=== PATIENT | female | born 1980 | race Two or more races ===

== ENCOUNTER 2016-11-08 07:14 | Day surgery (SDC) | payer OTHER ==
[2016-11-05 14:08] VITALS: BMI 23.3
[2016-11-08] MEDS ORDERED: MIDAZOLAM HCL 2 MG/2 ML SINGLE DOSE VIAL ONE (07:44)
[2016-11-08] MEDS ORDERED: PROPOFOL 20 ML ONE ×2 (07:44)
--- NOTE | 2016-11-08 09:13 | HP ---
Admitting History and Physical - Admission Chief Complaint: Multiparity History of Present Illness: 36 yo Para 2, desires permanent sterilization. History Source: Patient Limitations to Obtaining History: No Limitations - Past Medical History ...LMP: 03/10/17 ...: No ...Para: 2 - Past Surgical History Past Surgical History: Yes: None - Smoking History Smoking history: Never smoked Have you smoked in the past 12 months: No - Alcohol/Substance Use Hx Alcohol Use: Yes (OCC) History of Substance Use: reports: None - Social History History of Recent Travel: No Home Medications - Allergies Allergies/Adverse Reactions: Allergies Allergy/AdvReac Type Severity Reaction Status Date / Time Penicillins Allergy Intermediate Rash Verified 11/08/16 07:40 - Home Medications Home Medications: Ambulatory Orders Cholecalciferol (Vitamin D3) [Vitamin D3] 2,000 unit PO DAILY 11/05/16 Ibuprofen 800 mg PO Q6H PRN 11/05/16 Zinc Gluconate [Zinc] 50 mg PO DAILY 11/05/16 Family Disease History - Family Disease History Family History: Unremarkable Review of Systems - Review of Systems Constitutional: reports: No Symptoms Eyes: reports: No Symptoms HENT: reports: No Symptoms Neck: reports: No Symptoms Cardiovascular: reports: No Symptoms Respiratory: reports: No Symptoms Gastrointestinal: reports: No Symptoms Genitourinary: reports: No Symptoms Breasts: reports: No Symptoms Reported Musculoskeletal: reports: No Symptoms Integumentary: reports: No Symptoms Neurological: reports: No Symptoms Endocrine: reports: No Symptoms Hematology/Lymphatic: reports: No Symptoms Psychiatric: reports: No Symptoms Pain Intensity: 0 Physical Examination Vital Signs: Vital Signs Temperature 98.8 F 11/08/16 07:32 Pulse Rate 86 11/08/16 07:32 Respiratory Rate 18 11/08/16 07:32 Blood Pressure 129/67 11/08/16 07:32 O2 Sat by Pulse Oximetry (%) 100 11/08/16 07:32 Constitutional: Yes: Well Nourished Eyes: Yes: Conjunctiva Clear HENT: Yes: Atraumatic Neck: Yes: Supple, Trachea Midline Cardiovascular: Yes: Regular Rate and Rhythm Respiratory: Yes: Regular, CTA Bilaterally Gastrointestinal: Yes: Normal Bowel Sounds Neurological: Yes: Alert, Oriented ...Motor Strength: WNL Psychiatric: Yes: Alert, Oriented Problem List - Problems (1) Sterilization Code(s): Z30.2 - ENCOUNTER FOR STERILIZATION (2) Multiparity Code(s): Z64.1 - PROBLEMS RELATED TO MULTIPARITY Assessment/Plan Multiparity Pre op for permanent sterilization Consent signed Anesthesia to see patient
[2016-11-08] MEDS ORDERED: KETOROLAC TROMETHAMINE 30 MG/1 ML VIAL ONE (09:49)
[2016-11-08] MEDS ORDERED: DEXAMETHASONE SOD PHOSPHATE 4 MG/1 ML VIAL ONE (09:49)
[2016-11-08] MEDS ORDERED: LIDOCAINE HCL/PF 2% SDV 5ML VIAL ONE (09:50)
[2016-11-08] MEDS ORDERED: oxyCODONE HCL 5 MG TABLET PO PRN (10:05)
[2016-11-08] MEDS ORDERED: ONDANSETRON 4 MG/2 ML VIAL IVPUSH PRN (10:05)
[2016-11-08] MEDS ORDERED: LACTATED RINGERS SOLUTION 1,000 ML IV SCH (10:15)
--- NOTE | 2016-11-08 10:29 | OP ---
Operative Note - Note: Operative Date: 11/08/16 Pre-Operative Diagnosis: Multiparity Operation: ESSURE attempt Findings: Non Visualization of tubal ostia Post-Operative Diagnosis: Same as Pre-op Surgeon: Jennyfer Maldonado Anesthesia: General
[2016-11-08 10:48] VITALS: TEMP 97.8
[2016-11-08 12:42] VITALS: BP 115/63; PULSE 84
--- NOTE | 2016-11-09 12:31 | PATH ---
Surgical Pathology Report Patient Name: FAVIO SARAVIA [facility]. Rec. #: [id number] /Age/Gender: 1980 (Age: 36) / F Account: [id number] Location: [facility] [place] [facility] Taken: 11/08/2016 Received: 11/08/2016 Reported: 11/09/2016 Physicians: Jennyfer Maldonado M.D. Specimen(s) Received ENDOMETRIAL CURETTINGS Clinical History Multiparity Final Diagnosis ENDOMETRIUM, CURETTING: MUCINOUS MATERIAL WITH ADMIXED NEUTROPHILS. NO INTACT ENDOMETRIUM IDENTIFIED. Comment: Recommend correlation with clinical findings and follow up as clinically indicated. Electronically Signed Andrey Miranda M.D. Gross Description Received in formalin labeled "endometrial curettings," is a 1.0 x 1.0 x 0.3 cm aggregate of blood-tinged mucus, possibly containing soft tissue fragments. The formalin is filtered and the specimen is entirely submitted in one cassette. /11/08/2016 saudi11/08/2016
== END 2016-11-08 12:43 | disposition home or self-care (01) ==
LOC: JASU-SURG 07:14
PROVIDERS: ATTEND Obstetrics & Gynecology
PROC: 0UL78DZ Occlusion of Bilateral Fallopian Tubes with Intraluminal Device, Via Natural or Artificial Opening Endoscopic (ICD-10-PCS; principal; 2016-11-08 08:00)
DX: Z30.2 Encounter for sterilization (principal); Z53.8 Procedure and treatment not carried out for other reasons
CPT/HCPCS: 36415; 84702; 88305-TC; 94760

== ENCOUNTER 2016-12-07 06:17 | Day surgery (SDC) | payer OTHER ==
[2016-12-06 09:17] VITALS: BMI 23.3
[2016-12-07] MEDS ORDERED: PROPOFOL 20 ML ONE (07:30)
[2016-12-07] MEDS ORDERED: MIDAZOLAM HCL 2 MG/2 ML SINGLE DOSE VIAL ONE (07:30)
--- NOTE | 2016-12-07 08:22 | HP ---
Admitting History and Physical - Admission Chief Complaint: Multiparity History of Present Illness: 36 yo presents for Hysteroscopic ESSURE. History Source: Patient Limitations to Obtaining History: No Limitations - Past Medical History ...LMP: 03/10/17 ...LMP Comment: provera- 02/26 ...: No - Past Surgical History Past Surgical History: Yes: None - Smoking History Smoking history: Never smoked Have you smoked in the past 12 months: No - Alcohol/Substance Use Hx Alcohol Use: Yes (OCC) History of Substance Use: reports: None - Social History History of Recent Travel: No Home Medications - Allergies Allergies/Adverse Reactions: Allergies Allergy/AdvReac Type Severity Reaction Status Date / Time Penicillins Allergy Intermediate Rash Verified 11/08/16 07:40 - Home Medications Home Medications: Ambulatory Orders Cholecalciferol (Vitamin D3) [Vitamin D3] 2,000 unit PO DAILY 11/05/16 Ibuprofen 800 mg PO Q6H PRN 11/05/16 Zinc Gluconate [Zinc] 50 mg PO DAILY 11/05/16 Review of Systems - Review of Systems Constitutional: reports: No Symptoms Eyes: reports: No Symptoms HENT: reports: No Symptoms Neck: reports: No Symptoms Cardiovascular: reports: No Symptoms Respiratory: reports: No Symptoms Gastrointestinal: reports: No Symptoms Genitourinary: reports: No Symptoms Breasts: reports: No Symptoms Reported Musculoskeletal: reports: No Symptoms Integumentary: reports: No Symptoms Neurological: reports: No Symptoms Endocrine: reports: No Symptoms Hematology/Lymphatic: reports: No Symptoms Physical Examination Vital Signs: Vital Signs Temperature 98.6 F 12/07/16 06:43 Pulse Rate 82 12/07/16 06:43 Respiratory Rate 16 12/07/16 06:43 Blood Pressure 116/73 12/07/16 06:43 O2 Sat by Pulse Oximetry (%) 98 12/07/16 06:43 Constitutional: Yes: Well Nourished Eyes: Yes: Conjunctiva Clear HENT: Yes: Atraumatic Neck: Yes: Supple Cardiovascular: Yes: Regular Rate and Rhythm Respiratory: Yes: Regular Gastrointestinal: Yes: Normal Bowel Sounds Musculoskeletal: Yes: WNL Neurological: Yes: Alert, Oriented ...Motor Strength: WNL Psychiatric: Yes: Alert, Oriented Assessment/Plan Multiparity Pre op for Hysteroscopic ESSURE Consent signed Anesthesia to see patient
[2016-12-07] MEDS ORDERED: ONDANSETRON 4 MG/2 ML VIAL IVPUSH PRN (08:50)
[2016-12-07] MEDS ORDERED: oxyCODONE HCL 5 MG TABLET PO PRN ×2 (08:50)
[2016-12-07] MEDS ORDERED: LACTATED RINGERS SOLUTION 1,000 ML IV SCH (09:00)
[2016-12-07] MEDS ORDERED: KETOROLAC TROMETHAMINE 30 MG/1 ML VIAL ONE (10:36)
[2016-12-07] MEDS ORDERED: DEXAMETHASONE SOD PHOSPHATE 4 MG/1 ML VIAL ONE (10:36)
[2016-12-07 12:30] VITALS: TEMP 98
[2016-12-07] MEDS ORDERED: ONDANSETRON 4 MG/2 ML VIAL ONE (12:54)
[2016-12-07 14:41] VITALS: BP 118/76; PULSE 78
--- NOTE | 2016-12-30 08:43 | OP ---
DATE OF OPERATION: 12/07/2016 PREOPERATIVE DIAGNOSIS: Multiparity, desired permanent sterilization. POSTOPERATIVE DIAGNOSIS: Multiparity, desired permanent sterilization. PROCEDURE: Laparoscopic Essure. SURGEON: Jennyfer Maldonado MD ANESTHESIA: General. COMPLICATIONS: None. DESCRIPTION OF PROCEDURE: Patient was taken to the operating room where general anesthesia was administered. Patient was then placed in lithotomy position. She was prepped and draped in proper sterile fashion. A speculum was placed in the vagina. Anterior lip of the cervix was grasped with a single-tooth tenaculum, and the cervical os was sequentially dilated with dilators. Then the hysteroscope was then gently introduced into the uterine cavity. Both ostia were visualized. Then the introducer was placed through the working channel. The Essure catheter was then carefully inserted into the introducer, and the catheter was advanced until the black positioning marker was at the tubal ostium. The Essure handle was stabilized to the hysteroscope. The thumbwheel was rolled back to the black positioning marker, moved toward me until reaching a hard stop, then placement of the micro-insert was checked, and the gold band was noted to be outside of the ostium. Then the button was pressed to initiate deployment. Finally, the thumb wheel was rolled back to a hard stop, which expanded and detached the micro-insert. On the left side there were 5 coils noted, and on the right side there were 3 coils noted. Patient tolerated the procedure well. Patient was taken to PACU in stable condition. JENNYFER MALDONADO M.D. [id number]
== END 2016-12-07 14:00 | disposition home or self-care (01) ==
LOC: JASU-SURG 06:17
PROVIDERS: ATTEND Obstetrics & Gynecology
PROC: 0UL78DZ Occlusion of Bilateral Fallopian Tubes with Intraluminal Device, Via Natural or Artificial Opening Endoscopic (ICD-10-PCS; principal; 2016-12-07 07:30)
DX: Z30.2 Encounter for sterilization (principal)
CPT/HCPCS: 84703; 94760

== ENCOUNTER 2020-02-18 11:34 | Emergency (ER) | payer OTHER ==
[2020-02-18 11:46] VITALS: TEMP 98.1; BMI 19.8
[2020-02-18] MEDS ORDERED: ONDANSETRON 4 MG/2 ML VIAL IVPUSH ONE (13:11)
[2020-02-18] MEDS ORDERED: SODIUM CHLORIDE 1,000 ML IV STA (13:11)
[2020-02-18] MEDS ORDERED: morphine CARPU-JECT 4 MG/1 ML DISP.SYRIN IVPUSH ONE (13:11)
[2020-02-18] MEDS ORDERED: morphine SULFATE 4 MG/ML VIAL ONE (13:21)
[2020-02-18] MEDS ORDERED: ONDANSETRON 4 MG/2 ML VIAL ONE (13:22)
[2020-02-18 14:13] LABS: BASO % 0.2 % (0-2.0); HEMATOCRIT 34.6 % (32.4-45.2); HEMOGLOBIN 11.5 GM/dL (10.7-15.3); MCH 29.7 pg (25.7-33.7); MCHC 33.3 g/dl (32.0-36.0); MEAN CELL VOLUME 89.4 fl (80-96); MEAN PLT VOLUME 8.2 fl (7.5-11.1); MONO % 10.4 % (3.8-10.2); NEUT % 56.4 % (42.8-82.8); PLATELET COUNT 206 K/MM3 (134-434); RBC 3.87 M/mm3 (3.60-5.2); RDW 13.9 % (11.6-15.6); WHITE BLOOD COUNT 4.6 K/mm3 (4.0-10.0)
[2020-02-18 14:30] LABS: EPI CELLS 22 /uL (0-25.1); HCG,QUALITATIVE URINE Negative; HYALINE CASTS 2 /uL (0-3.1); PH,URINE 6.5 (5.0-8.0); URINE APPEARANCE CLEAR; URINE BILIRUBIN 1+ (NEGATIVE); URINE COLOR ORANGE; URINE GLUCOSE (UA) NEGATIVE (NEGATIVE); URINE KETONE 4+ (NEGATIVE); URINE LEUK ESTERASE 1+ (NEGATIVE); URINE NITRITE POSITIVE (NEGATIVE); URINE PROTEIN 1+ (NEGATIVE); URINE RBC 23 /uL (0-23.9); URINE WBC 26 /uL (0-25.8)
[2020-02-18 14:38] LABS: POTASSIUM 3.4 mmol/L (3.5-5.1)
[2020-02-18 14:40] LABS: BLOOD UREA NITROGEN 11.4 mg/dL (7-18); CALCIUM 8.5 mg/dL (8.5-10.1)
[2020-02-18 14:41] LABS: ALBUMIN 3.9 g/dl (3.4-5.0)
[2020-02-18 14:44] LABS: BILIRUBIN,TOTAL 0.7 mg/dL (0.2-1); CREATININE 0.6 mg/dL (0.55-1.3); TOT PROT 7.5 g/dl (6.4-8.2)
[2020-02-18 15:05] LABS: URINE BACTERIA 412.9 /uL (0-1359)
[2020-02-18 17:52] VITALS: BP 120/86; PULSE 88
== END 2020-02-18 17:52 | disposition home or self-care (01) ==
LOC: JER 11:34
PROC: 3E033NZ Introduction of Analgesics, Hypnotics, Sedatives into Peripheral Vein, Percutaneous Approach (ICD-10-PCS; principal; 2020-02-18)
PROC: 3E033GC Introduction of Other Therapeutic Substance into Peripheral Vein, Percutaneous Approach (ICD-10-PCS; 2020-02-18)
PROC: 3E0337Z Introduction of Electrolytic and Water Balance Substance into Peripheral Vein, Percutaneous Approach (ICD-10-PCS; 2020-02-18)
DX: N30.00 Acute cystitis without hematuria (principal)
CPT/HCPCS: 36415; 76705-TC; 80053; 81003; 83690; 84703; 85025; 87086; 87491; 87591; 93005; 93010; 99285-25

== ENCOUNTER 2020-02-19 22:36 | Emergency (ER) | payer OTHER ==
[2020-02-19 22:50] VITALS: BMI 19.7
[2020-02-20] MEDS ORDERED: LACTATED RINGERS SOLUTION 1000 ML INFUS.BAG IV STA (01:31)
[2020-02-20] MEDS ORDERED: ACETAMINOPHEN 1000 MG/100 ML VIAL (NON FORMULARY) IVPB ONE (01:32)
[2020-02-20] MEDS ORDERED: ONDANSETRON 4 MG/2 ML VIAL IVPUSH ONE (01:32)
[2020-02-20] MEDS ORDERED: ONDANSETRON 4 MG/2 ML VIAL ONE (01:43)
[2020-02-20] MEDS ORDERED: ACETAMINOPHEN INJECTION 100 ML IVPB ONE (01:43)
[2020-02-20 03:21] LABS: BASO % 0.2 % (0-2.0); EOS % 0.2 % (0-4.5); HEMATOCRIT 33.2 % (32.4-45.2); HEMOGLOBIN 10.9 GM/dL (10.7-15.3); LYMPH % 30.6 % (8-40); MCH 29.8 pg (25.7-33.7); MCHC 32.9 g/dl (32.0-36.0); MEAN CELL VOLUME 90.7 fl (80-96); MEAN PLT VOLUME 8.2 fl (7.5-11.1); MONO % 11.1 % (3.8-10.2); NEUT % 57.9 % (42.8-82.8); PLATELET COUNT 213 K/MM3 (134-434); RBC 3.66 M/mm3 (3.60-5.2); RDW 13.7 % (11.6-15.6)
[2020-02-20 03:22] LABS: POTASSIUM 3.7 mmol/L (3.5-5.1)
[2020-02-20 03:23] LABS: CALCIUM 8.6 mg/dL (8.5-10.1)
[2020-02-20 03:24] LABS: ALBUMIN 3.8 g/dl (3.4-5.0)
[2020-02-20 03:25] LABS: BLOOD UREA NITROGEN 10.1 mg/dL (7-18)
[2020-02-20 03:28] LABS: CREATININE 0.7 mg/dL (0.55-1.3)
[2020-02-20 03:29] LABS: BILIRUBIN,TOTAL 0.6 mg/dL (0.2-1); TOT PROT 7.3 g/dl (6.4-8.2)
[2020-02-20 04:11] LABS: EPI CELLS 11 /uL (0-25.1); HYALINE CASTS 3 /uL (0-3.1); URINE APPEARANCE CLEAR; URINE BACTERIA 60 /uL (0-1359); URINE BILIRUBIN NEGATIVE (NEGATIVE); URINE COLOR YELLOW; URINE GLUCOSE (UA) NEGATIVE (NEGATIVE); URINE KETONE 1+ (NEGATIVE); URINE LEUK ESTERASE TRACE (NEGATIVE); URINE NITRITE NEGATIVE (NEGATIVE); URINE PROTEIN TRACE (NEGATIVE); URINE RBC 17 /uL (0-23.9); URINE WBC 7 /uL (0-25.8)
[2020-02-20] MEDS ORDERED: SULFAMETHOXAZOLE/TRIMETHOPRIM 800MG/160MG D.S. TABLET PO ONE (04:45)
[2020-02-20] MEDS ORDERED: MAG HYDROX/AL HYDROX/SIMETH -MYLANTA- ORAL SUSPENSION PO ONE (04:46)
[2020-02-20] MEDS ORDERED: METOCLOPRAMIDE HCL INJECTION 10 MG/2 ML VIAL IVPUSH ONE (04:46)
[2020-02-20] MEDS ORDERED: METOCLOPRAMIDE HCL INJECTION 10 MG/2 ML VIAL ONE (05:31)
[2020-02-20] MEDS ORDERED: SULFAMETHOXAZOLE/TRIMETHOPRIM 800MG/160MG D.S. TABLET ONE (05:31)
[2020-02-20] MEDS ORDERED: MAG HYDROX/AL HYDROX/SIMETH 30 ML UNIT-DOSE CUP ONE (05:32)
[2020-02-20 06:57] VITALS: BP 104/63; PULSE 88; TEMP 99.7
== END 2020-02-20 06:53 | disposition home or self-care (01) ==
LOC: JER 22:36
PROC: 3E0333Z Introduction of Anti-inflammatory into Peripheral Vein, Percutaneous Approach (ICD-10-PCS; principal; 2020-02-19)
PROC: 3E033GC Introduction of Other Therapeutic Substance into Peripheral Vein, Percutaneous Approach (ICD-10-PCS; 2020-02-19)
PROC: 3E033GC Introduction of Other Therapeutic Substance into Peripheral Vein, Percutaneous Approach (ICD-10-PCS; 2020-02-19)
DX: U07.1 COVID-19 (principal); N30.00 Acute cystitis without hematuria; R11.2 Nausea with vomiting, unspecified
CPT/HCPCS: 36415; 74176-TC; 80053; 81003; 85025; 87040; 87086; 93005; 93010; 96374; 96375; 99285-25; C9803; J0131; U0003